=== PATIENT | male | born 1970 | race Asian ===

== ENCOUNTER → 2016-04-16 | Outpatient (CLI) | payer OTHER ==
[2016-04-16 10:20] LABS: ANION GAP 12 (5-19); BLOOD UREA NITROGEN 23 mg/dL (7-20); CARBON DIOXIDE 28 mmol/L (22-30); CHLORIDE 103 mmol/L (98-107); CHOLESTEROL 241.49 mg/dL (0-200); CREATININE RESULT 0.77 mg/dL (0.52-1.25); Direct HDL 66 mg/dL (>40); GLUCOSE 92 mg/dL (75-110); MAGNESIUM 2.2 mg/dL (1.6-2.3); POTASSIUM 5.2 mmol/L (3.6-5.0); SODIUM 142.6 mmol/L (137-145); TRIGLYCERIDES 97 mg/dL (<150)
[2016-04-16 10:35] LABS: DIRECT LDL 134 mg/dL (<100)
== END ==
LOC: OD 07:51
PROVIDERS: ATTEND Internal Medicine Cardiovascular Disease
DX: E78.2 Mixed hyperlipidemia (principal); Z79.899 Other long term (current) drug therapy
CPT/HCPCS: 36415; 80048; 80061; 83735

== ENCOUNTER → 2017-01-15 | Outpatient (CLI) | payer BC ==
[2017-01-15 12:23] LABS: ANION GAP 13 (5-19); BLOOD UREA NITROGEN 17 mg/dL (7-20); CALCIUM 9.8 mg/dL (8.4-10.2); CARBON DIOXIDE 29 mmol/L (22-30); CHLORIDE 101 mmol/L (98-107); CHOLESTEROL 274.79 mg/dL (0-200); Direct HDL 76 mg/dL (>40); GLUCOSE 97 mg/dL (75-110); MAGNESIUM 2.1 mg/dL (1.6-2.3); SODIUM 143.1 mmol/L (137-145); TRIGLYCERIDES 142 mg/dL (<150)
[2017-01-15 12:33] LABS: DIRECT LDL 170 mg/dL (<100)
== END ==
LOC: OD 10:45
PROVIDERS: ATTEND Internal Medicine Cardiovascular Disease
DX: I49.3 Ventricular premature depolarization (principal); E78.2 Mixed hyperlipidemia
CPT/HCPCS: 36415; 80048; 80061; 83735